=== PATIENT | male | born 1975 | race Caucasian/White ===

== ENCOUNTER 2020-04-16 10:54 | Inpatient (IN) | payer OTHER ==
--- NOTE | 2020-04-16 11:10 | BHS.RME ---
Substance Use & Tx History - Substance Use History Alcohol Substance amount: 12 beers 12 oz Frequency of use: Daily Substance route: Oral Date of Last Use: 04/16/20 Physical/Psych/Mental Status - Behavior General Behavior: Increased activity (restlessness, agitation) Eye Contact: Normal - Cooperativeness Cooperativeness: Cooperative - Thinking Thought Processes: Tight, Logical, Goal Directed Thought content: Future oriented - Physical Health Problems Is patient presently having any pain?: No Does patient presently have any injuries (include location): No Does patient currently have a fever: No Is patient : No CIWA Nausea/Vomitin Muscle Tremors: 5 Anxiety: 4-Mod. Anxious/Guarded Agitation: 4-Moderately Restless Paroxysmal Sweats: No Perspiration Orientation: 0-Oriented Tacttile Disturbances: 0-None Auditory Disturbances: 0-None Visual Disturbances: 0-None Headache: 2-Mild CIWA-Ar Total Score: 20
[2020-04-16 11:35] VITALS: BMI 26.7
--- NOTE | 2020-04-16 11:55 | HP ---
CIWA Score Nausea/Vomitin Muscle Tremors: 5 Anxiety: 4-Mod. Anxious/Guarded Agitation: 4-Moderately Restless Paroxysmal Sweats: No Perspiration Orientation: 0-Oriented Tacttile Disturbances: 0-None Auditory Disturbances: 0-None Visual Disturbances: 0-None Headache: 2-Mild CIWA-Ar Total Score: 20 - Admission Criteria OASAS Guidelines: Admission for Medically Managed Detox: Requires at least one of the followin. CIWA greater than 12 2. Seizures within the past 24 hours 3. Delirium tremens within the past 24 hours 4. Hallucinations within the past 24 hours 5. Acute intervention needed for co occurring medical disorder 6. Acute intervention needed for co occurring psychiatric disorder 7. Severe withdrawal that cannot be handled at a lower level of care (continued vomiting, continued diarrhea, abnormal vital signs) requiring intravenous medication and/or fluids 8. Patient presents the following: CIWA greater than 12 Admission Criteria Met: Admission criteria met Admitting History and Physical - Admission Chief Complaint: Patient is a 45 year old male with history of alcohol use disorder, nicotine dependence, presents for detox. History of Present Illness: Patient is a 45 year old male with history of alcohol use disorder, nicotine dependence, presents for detox. PMH: psoriasis PSH: denies Social: lives in [place] with , currently unemployed. former milk delivery driver. Psych: depression Legal: DUI x2 This is patient's first presentation to [facility] for Detox. History Source: Patient Limitations to Obtaining History: No Limitations - Past Medical History Psych: Yes: Depression - Smoking History Smoking history: Former smoker Have you smoked in the past 12 months: No If you are a former smoker, when did you quit?: 2015 - Alcohol/Substance Use Hx Alcohol Use: Yes - Social History Usual Living Arrangement: Yes: With Spouse Do you think of yourself as: Straight/Heterosexual ADL: Independent Occupation: unemployed; former milk delivery driver History of Recent Travel: No Admission ROS [facility] Chief Complaint: Patient is a 45 year old male with history of alcohol use disorder, nicotine dependence, presents for detox. Allergies/Adverse Reactions: Allergies Allergy/AdvReac Type Severity Reaction Status Date / Time No Known Allergies Allergy Verified 04/16/20 11:26 Exam Limitations: No Limitations - Ebola screening Have you traveled outside of the country in the last 21 days: No Have you been sick,other than usual withdrawal symptoms: No Do you have a fever: No - Review of Systems Constitutional: No Symptoms Reported EENT: denies: Blurred Vision, Hearing Loss Respiratory: denies: Cough, Shortness of Breath Cardiac: denies: Chest Pain, Palpitations GI: reports: Diarrhea (patient states secondary to withdrawal), Vomiting, Abdominal cramping, Other (diminished appetite) : denies: Burning, Dysuria Musculoskeletal: denies: Back Pain, Muscle Pain Integumentary: denies: Lesions, Sweating Neuro: reports: Headache, Weakness (diffuse bodu weakness, secondary to withdrawal). denies: Numbness Psychiatric: reports: Anxious, Depressed, other (denies suicidal, homicidal ideation) Patient History - Patient Medical History Hx Asthma: No Hx Chronic Obstructive Pulmonary Disease (COPD): No Hx Cardiac Disorders: No Hx Hypertension: No Hx Seizures: Yes (etoh related seizures last in 2018) Hx Diabetes: No Hx Gastrointestinal Disorders: No Hx Genitourinary Disorders: No Hx Sexually Transmitted Disorders: No Hx Renal Disease (ESRD): No Hx Depression: Yes Hx Suicide Attempt: No Hx Schizophrenia: No - Patient Surgical History Past Surgical History: No - PPD History Previous Implant?: Yes Documented Results: Negative w/o proof Implanted On Prior R Admission?: No PPD to be Administered?: Yes - Reproductive History Patient is a Female of Child Bearing Age (11 -55 yrs old): No Patient : No - Smoking Cessation Smoking history: Former smoker Have you smoked in the past 12 months: No If you are a former smoker, when did you quit?: 2014 Hx Chewing Tobacco Use: No Initiated information on smoking cessation: No - Substance & Tx. History Hx Alcohol Use: Yes Substance Use Type: Alcohol - Substances abused Alcohol Substance route: Oral Frequency: Daily Amount used: 12 beers Age of first use: 17 Date of last use: 04/16/20 Admission Physical Exam BHS - Vital Signs Vital Signs: Vital Signs - 24 hr 04/16/20 11:26 Temperature 98.3 F Pulse Rate 90 Respiratory 20 Rate Blood Pressure 132/90 - Physical General Appearance: Yes: Within Normal Limits, Nourished, Mild Distress, Anxious HEENTM: Yes: EOMI, Normocephalic, TOM Respiratory: Yes: Normal Breath Sounds, No Respiratory Distress, No Accessory Muscle Use Neck: Yes: Supple Cardiology: Yes: Regular Rhythm, Regular Rate, S1, S2 Abdominal: Yes: Normal Bowel Sounds, Non Tender, Flat, Soft Musculoskeletal: Yes: Within Normal Limits, full range of Motion Extremities: Yes: Within Normal Limits, Normal Range of Motion Neurological: Yes: deliver driver II-XII NML intact, Alert, Motor Strength 5/5, Normal R esponse Integumentary: Yes: Dry, Warm - Diagnostic (1) Alcohol dependence with withdrawal, uncomplicated Current Visit: Yes Status: Acute (2) Depression Current Visit: No Status: Chronic Qualifiers: Depression Type: unspecified Qualified Code(s): F32.9 - Major depressive disorder, single episode, unspecified Cleared for Admission [facility] - Detox or Rehab [facility] Level of Care: Medically Managed Detox Regimen/Protocol: Librium Claeared for Rehab Admission: No Screened but not Admitted - Documentation of Visit Screened but not Admitted: Yes Breathalyzer - Breathalyzer Breathalyzer: 0.171 Urine Drug Screen - Test Device Lot number: [id number] Expiration date: 12/03/21 - Control Is test valid?: Yes - Results Drug screen NEGATIVE: Yes Inpatient Rehab Admission - Rehab Decision to Admit Inpatient rehab admission?: No
[2020-04-16] MEDS ORDERED: MAGNESIUM CITRATE 300 ML BOTTLE PO PRN (12:02)
[2020-04-16] MEDS ORDERED: IBUPROFEN 400 MG TABLET (FP) PO PRN (12:02)
[2020-04-16] MEDS ORDERED: BISMUTH SUBSALICYLATE 524 MG/30 ML UD PO PRN (12:02)
[2020-04-16] MEDS ORDERED: MENTHOL/PHENOL 1 EACH UD MM PRN (12:02)
[2020-04-16] MEDS ORDERED: MAGNESIUM HYDROX 2400MG/30ML ORAL SUSPENSION 30 ML CUP PO PRN (12:02)
[2020-04-16] MEDS ORDERED: chlordiazePOXIDE HCL 25 MG CAPSULE PO PRN (12:02)
[2020-04-16] MEDS ORDERED: MAG HYDROX/AL HYDROX/SIMETH 30 ML UNIT-DOSE CUP PO PRN (12:02)
[2020-04-16] MEDS ORDERED: ONDANSETRON *ODT* 4 MG TABLET SL PRN (12:02)
[2020-04-16] MEDS ORDERED: METHOCARBAMOL 500 MG TABLET PO PRN (12:02)
[2020-04-16] MEDS ORDERED: ACETAMINOPHEN 325 MG TABLET (FP) PO PRN ×2 (12:02)
[2020-04-16] MEDS: hydrOXYzine PAMOATE 25 MG CAPSULE (FP) PO SCH ×3 (13:13→22:36)
[2020-04-16 14:32] LABS: HEMOGLOBIN 17.4 GM/dL (11.7-16.9); MCH 33.5 pg (25.7-33.7); MCHC 34.1 g/dl (32.0-35.9); MEAN CELL VOLUME 98.2 fl (80-96); PLATELET COUNT 205 K/MM3 (134-434); RBC 5.19 M/mm3 (4.00-5.60); WHITE BLOOD COUNT 5.8 K/mm3 (4.0-10.0)
[2020-04-16 14:39] LABS: ALBUMIN 4.4 g/dl (3.4-5.0); BILIRUBIN,TOTAL 0.6 mg/dL (0.2-1); BLOOD UREA NITROGEN 3.2 mg/dL (7-18); CALCIUM 9.2 mg/dL (8.5-10.1); CREATININE 0.7 mg/dL (0.55-1.3); POTASSIUM 4.2 mmol/L (3.5-5.1); TOT PROT 8.1 g/dl (6.4-8.2)
[2020-04-16] MEDS: chlordiazePOXIDE HCL 25 MG CAPSULE PO SCH ×2 (17:55→22:36)
[2020-04-16] MEDS: MELATONIN 5 MG TABLETS PO SCH (22:36)
[2020-04-16] MEDS: THIAMINE HCL 100 MG TABLET (FP) PO SCH (22:36)
[2020-04-17] MEDS: chlordiazePOXIDE HCL 25 MG CAPSULE PO SCH ×2 (05:37→11:08)
[2020-04-17] MEDS: hydrOXYzine PAMOATE 25 MG CAPSULE (FP) PO SCH ×5 (05:37→22:53)
--- NOTE | 2020-04-17 08:02 | PN ---
Teaching Attending Note Name of Resident: Jorge Jang ATTENDING PHYSICIAN STATEMENT I saw and evaluated the patient. I reviewed the resident's note and discussed the case with the resident. I agree with the resident's findings and plan as documented. SUBJECTIVE: OBJECTIVE: ASSESSMENT AND PLAN: I agree with resident's plan for admission and treatment protocols.
--- NOTE | 2020-04-17 10:38 | EKG ---
Test Reason : Blood Pressure : / mmHG Vent. Rate : 085 BPM Atrial Rate : 085 BPM P-R Int : 138 ms QRS Dur : 104 ms QT Int : 384 ms P-R-T Axes : 059 070 064 degrees QTc Int : 456 ms NORMAL SINUS RHYTHM NONSPECIFIC INTRAVENTRICULAR CONDUCTION DEFECT NO PREVIOUS ECGS AVAILABLE Confirmed by GIOVANI MUNOZ MD ([id number]) on 04/17/2020 10:38:04 AM Referred By: Confirmed By:GIOVANI MUNOZ MD
[2020-04-17] MEDS: PRENATAL VITAMINS W/ FOLIC ACID TABLET (FP) PO SCH (11:08)
--- NOTE | 2020-04-17 13:15 | CONSULT ---
[facility] Psychiatric Consult - Data Date of interview: 04/17/20 Admission source: [facility] Identifying data: First visit to [facility] and admission to [address] [place] [address] for this 45 y/o [place]born male self-referred for detoxification treatment. EJ issue : alcohol. Patient is marreied (living with ), no dependents, domiciled and currently employed (took time off to address his ETOH problems). Substance Abuse History: Discussed with the patient. EJ issues as follows : Smoking history: Former smoker. Have you smoked in the past 12 months: No. If you are a former smoker, when did you quit?: 2015. Hx Chewing Tobacco Use: No. Initiated information on smoking cessation: No. - Substance & Tx. History. Hx Alcohol Use: Yes. Substance Use Type: Alcohol. - Substances abused. Alcohol. Substance route: Oral. Frequency: Daily. Amount used: 12 beers. Age of first use: 17. Date of last use: 04/16/20 Medical History: Patient endorses good general health. Noted history of ETOH withdrawal-related seizures. Psychiatric History: Patient denies history of psychiatric hospitalizations, OPD care or suicide attempts. Physical/Sexual Abuse/Trauma History: Patient denies. Additional Comment: Negative toxicology. Mental Status Exam - Mental Status Exam Alert and Oriented to: Time, Place, Person Cognitive Function: Good Patient Appearance: Well Groomed (short stature) Mood: Hopeful Affect: Appropriate, Normal Range Patient Behavior: Fatigued, Appropriate, Cooperative Speech Pattern: Clear, Appropriate (bilingual) Voice Loudness: Normal Thought Process: Intact, Goal Oriented Thought Disorder: Not Present Hallucinations: Denies Suicidal Ideation: Denies Homicidal Ideation: Denies Insight/Judgement: Fair Sleep: Fair Appetite: Good Gait/Station: Normal Psychiatric Findings - Problem List ([place] 1, 2,3) (1) Alcohol dependence with withdrawal, uncomplicated Current Visit: Yes Status: Acute - Initial Treatment Plan Initial Treatment Plan: Psychoeducation and support provided in this session. Sleep hygiene. Detoxification in progress. Patient is made aware of benefits of MAT interventions (disulfiram, naltrexone, acamprosate), AA fellowship for maintenance of sobriety. Observation.
--- NOTE | 2020-04-17 14:05 | PN ---
[facility] CIWA - CIWA Score Nausea/Vomitin-Mild Nausea/No Vomiting Muscle Tremors: 2 Anxiety: 2 Agitation: 2 Paroxysmal Sweats: No Perspiration Orientation: 0-Oriented Tacttile Disturbances: 1-Very Mild Itch/Numbness Auditory Disturbances: 0-None Visual Disturbances: 0-None Headache: 2-Mild CIWA-Ar Total Score: 10 S Progress Note (SOAP) Subjective: alert,irritable,anxious,interrupted sleep,tremor,aching pain in the body Objective: 04/17/20 16:32 Vital Signs Temperature 97.3 F L 04/17/20 12:46 Pulse Rate 93 H 04/17/20 13:59 Respiratory Rate 18 04/17/20 13:59 Blood Pressure 110/70 04/17/20 12:46 O2 Sat by Pulse Oximetry (%) 99 04/17/20 13:59 Laboratory Last Values WBC 5.8 K/mm3 (4.0-10.0) 04/16/20 12:15 RBC 5.19 M/mm3 (4.00-5.60) 04/16/20 12:15 Hgb 17.4 GM/dL (11.7-16.9) H 04/16/20 12:15 Hct 51.0 % (35.4-49) H 04/16/20 12:15 MCV 98.2 fl (80-96) H 04/16/20 12:15 MCH 33.5 pg (25.7-33.7) 04/16/20 12:15 MCHC 34.1 g/dl (32.0-35.9) 04/16/20 12:15 RDW 14.0 % (11.9-15.9) 04/16/20 12:15 Plt Count 205 K/MM3 (134-434) 04/16/20 12:15 MPV 9.0 fl (7.5-11.1) 04/16/20 12:15 Sodium 137 mmol/L (136-145) 04/16/20 12:15 Potassium 4.2 mmol/L (3.5-5.1) 04/16/20 12:15 Chloride 100 mmol/L (98-107) 04/16/20 12:15 Carbon Dioxide 25 mmol/L (21-32) 04/16/20 12:15 Anion Gap 11 MMOL/L (8-16) 04/16/20 12:15 BUN 3.2 mg/dL (7-18) L 04/16/20 12:15 Creatinine 0.7 mg/dL (0.55-1.3) 04/16/20 12:15 Est GFR (CKD-EPI)AfAm 133.02 04/16/20 12:15 Est GFR (CKD-EPI)NonAf 114.77 04/16/20 12:15 Random Glucose 94 mg/dL (74-106) 04/16/20 12:15 Calcium 9.2 mg/dL (8.5-10.1) 04/16/20 12:15 Total Bilirubin 0.6 mg/dL (0.2-1) 04/16/20 12:15 AST 337 U/L (15-37) H 04/16/20 12:15 ALT 247 U/L (13-61) H 04/16/20 12:15 Alkaline Phosphatase 179 U/L (45-117) H 04/16/20 12:15 Total Protein 8.1 g/dl (6.4-8.2) 04/16/20 12:15 Albumin 4.4 g/dl (3.4-5.0) 04/16/20 12:15 Syphilis Serology Non-reactive (NONREACTIVE) 04/16/20 12:15 COVID-19 (MARIAMA) Not detected (Not Detected) 04/16/20 12:15 Assessment: 04/17/20 16:33 withdrawal symptom Plan: continue detox ,regimen changed from librium to ativan due to elevation of alt,ast,repeat cmp,inr in am
[2020-04-17] MEDS ORDERED: LORazepam 1 MG TABLET PO PRN (16:36)
[2020-04-17] MEDS: LORazepam 2 MG TABLET PO SCH ×2 (18:21→22:53)
[2020-04-17] MEDS: THIAMINE HCL 100 MG TABLET (FP) PO SCH (22:53)
[2020-04-17] MEDS: MELATONIN 5 MG TABLETS PO SCH (22:54)
[2020-04-18] MEDS ORDERED: chlordiazePOXIDE HCL 25 MG CAPSULE PO SCH (05:00)
[2020-04-18] MEDS: hydrOXYzine PAMOATE 25 MG CAPSULE (FP) PO SCH ×5 (05:39→23:00)
[2020-04-18] MEDS: LORazepam 2 MG TABLET PO SCH ×4 (05:39→23:00)
--- NOTE | 2020-04-18 10:09 | PN ---
S CIWA - CIWA Score Nausea/Vomitin-No Nausea/No Vomiting Muscle Tremors: None Anxiety: 3 Agitation: 0-Normal Activity Paroxysmal Sweats: 3 Orientation: 0-Oriented Tacttile Disturbances: 0-None Auditory Disturbances: 0-None Visual Disturbances: 0-None Headache: 2-Mild CIWA-Ar Total Score: 8 BHS Progress Note (SOAP) Subjective: c/o muscle aches, anxiety, and headache. Objective: 04/18/20 10:08 Vital Signs 04/18/20 04/18/20 06:38 09:15 Temperature 97.5 F L 98.6 F Pulse Rate 83 115 H Respiratory 18 16 Rate Blood Pressure 110/75 131/90 O2 Sat by Pulse 98 95 Oximetry (%) Assessment: 04/18/20 10:09 AOX3, in no acute respiratory distress. Full ROM, ambulating in the unit. Withdrawal symptoms. Plan: continue detox.
[2020-04-18] MEDS: PRENATAL VITAMINS W/ FOLIC ACID TABLET (FP) PO SCH (11:02)
[2020-04-18] MEDS: MELATONIN 5 MG TABLETS PO SCH (23:00)
[2020-04-18] MEDS: THIAMINE HCL 100 MG TABLET (FP) PO SCH (23:00)
[2020-04-19] MEDS ORDERED: chlordiazePOXIDE HCL 10 MG CAPSULE PO PRN
[2020-04-19] MEDS ORDERED: LORazepam 0.5 MG TABLET ONE ×3 (04:35→20:30)
[2020-04-19] MEDS ORDERED: chlordiazePOXIDE HCL 10 MG CAPSULE PO SCH (05:00)
[2020-04-19] MEDS: hydrOXYzine PAMOATE 25 MG CAPSULE (FP) PO SCH ×5 (05:35→22:10)
[2020-04-19] MEDS: LORazepam 1 MG TABLET PO SCH ×4 (05:37→22:10)
[2020-04-19] MEDS: PRENATAL VITAMINS W/ FOLIC ACID TABLET (FP) PO SCH (10:45)
[2020-04-19] MEDS ORDERED: LOPERAMIDE HCL 2 MG CAPSULE PO ONE (10:58)
[2020-04-19] MEDS ORDERED: ONDANSETRON *ODT* 4 MG TABLET SL ONE (10:58)
--- NOTE | 2020-04-19 11:00 | PN ---
S CIWA - CIWA Score Nausea/Vomitin-Mild Nausea/No Vomiting Muscle Tremors: 1-None Visible, but [place] Anxiety: 1-Mildly Anxious Agitation: 0-Normal Activity Paroxysmal Sweats: No Perspiration Orientation: 0-Oriented Tacttile Disturbances: 0-None Auditory Disturbances: 0-None Visual Disturbances: 2-Mild Sensitivity Headache: 1-Very Mild CIWA-Ar Total Score: 6 BHS Progress Note (SOAP) Subjective: 45 years old male was admitted on 04/16/20 for alcohol withdrawal sx management treating with ativan detox regiment loose stool after breakfast imodium 4 mg po x 1 feeling nausea zofran 4 mg sl x 1 Objective: 04/19/20 11:03 Vital Signs - 24 hr 04/18/20 04/18/20 04/18/20 12:45 17:00 20:41 Temperature 97.1 F L 97.5 F L 97.1 F L Pulse Rate 104 H 80 85 Respiratory 20 18 18 Rate Blood Pressure 127/85 136/87 122/82 O2 Sat by Pulse 98 98 Oximetry (%) 04/19/20 04/19/20 05:24 08:49 Temperature 97.1 F L 97.5 F L Pulse Rate 95 H 107 H Respiratory 18 20 Rate Blood Pressure 128/85 134/81 O2 Sat by Pulse 99 Oximetry (%) Laboratory Tests 04/16/20 04/16/20 04/16/20 12:15 12:15 12:15 WBC 5.8 RBC 5.19 Hgb 17.4 H Hct 51.0 H MCV 98.2 H MCH 33.5 MCHC 34.1 RDW 14.0 Plt Count 205 MPV 9.0 Sodium 137 Potassium 4.2 Chloride 100 Carbon Dioxide 25 Anion Gap 11 BUN 3.2 L Creatinine 0.7 Est GFR (CKD-EPI)AfAm 133.02 Est GFR (CKD-EPI)NonAf 114.77 Random Glucose 94 Calcium 9.2 Total Bilirubin 0.6 AST 337 H ALT 247 H Alkaline Phosphatase 179 H Total Protein 8.1 Albumin 4.4 Syphilis Serology Non-reactive COVID-19 (MARIAMA) 04/16/20 12:15 WBC RBC Hgb Hct MCV MCH MCHC RDW Plt Count MPV Sodium Potassium Chloride Carbon Dioxide Anion Gap BUN Creatinine Est GFR (CKD-EPI)AfAm Est GFR (CKD-EPI)NonAf Random Glucose Calcium Total Bilirubin AST ALT Alkaline Phosphatase Total Protein Albumin Syphilis Serology COVID-19 (MARIAMA) Not detected 04/19/20 11:04 ast elevation continue ativan for alcohol withdrawal repeat ast pending Assessment: 04/19/20 11:11 alcohol withdrawal Plan: ativan regiment
[2020-04-19] MEDS: THIAMINE HCL 100 MG TABLET (FP) PO SCH (22:10)
[2020-04-19] MEDS: MELATONIN 5 MG TABLETS PO SCH (22:10)
[2020-04-20] MEDS ORDERED: LORazepam 0.5 MG TABLET PO PRN
[2020-04-20] MEDS ORDERED: chlordiazePOXIDE HCL 10 MG CAPSULE PO SCH (05:00)
[2020-04-20] MEDS: hydrOXYzine PAMOATE 25 MG CAPSULE (FP) PO SCH ×5 (05:39→22:25)
[2020-04-20] MEDS: LORazepam 0.5 MG TABLET PO SCH ×4 (05:39→22:25)
--- NOTE | 2020-04-20 09:19 | PN ---
S CIWA - CIWA Score Nausea/Vomitin-No Nausea/No Vomiting Muscle Tremors: 1-None Visible, but [place] Anxiety: 1-Mildly Anxious Agitation: 0-Normal Activity Paroxysmal Sweats: No Perspiration Orientation: 0-Oriented Tacttile Disturbances: 0-None Auditory Disturbances: 0-None Visual Disturbances: 1-Very Mild Sensitivity Headache: 0-None Present CIWA-Ar Total Score: 3 BHS Progress Note (SOAP) Subjective: 45 years old male was admitted on 04/16/20 for alcohol withdrawal sx management treating with ativan detox regiment feels better today less tremor mild anxiety discussing aftercare with staff mr segovia has appointment with [facility] tomorrow Objective: 04/20/20 09:19 Vital Signs - 24 hr 04/19/20 04/19/20 04/19/20 12:30 16:42 20:20 Temperature 97.3 F L 97.3 F L 97.7 F Pulse Rate 86 69 71 Respiratory 18 18 18 Rate Blood Pressure 126/86 117/79 123/80 O2 Sat by Pulse 100 98 Oximetry (%) 04/20/20 04/20/20 05:31 08:47 Temperature 97.3 F L 97.6 F Pulse Rate 78 90 Respiratory 20 16 Rate Blood Pressure 125/82 126/76 O2 Sat by Pulse 98 Oximetry (%) Laboratory Tests 04/16/20 04/16/20 04/16/20 12:15 12:15 12:15 WBC 5.8 RBC 5.19 Hgb 17.4 H Hct 51.0 H MCV 98.2 H MCH 33.5 MCHC 34.1 RDW 14.0 Plt Count 205 MPV 9.0 Sodium 137 Potassium 4.2 Chloride 100 Carbon Dioxide 25 Anion Gap 11 BUN 3.2 L Creatinine 0.7 Est GFR (CKD-EPI)AfAm 133.02 Est GFR (CKD-EPI)NonAf 114.77 Random Glucose 94 Calcium 9.2 Total Bilirubin 0.6 AST 337 H ALT 247 H Alkaline Phosphatase 179 H Total Protein 8.1 Albumin 4.4 Syphilis Serology Non-reactive COVID-19 (MARIAMA) 04/16/20 12:15 WBC RBC Hgb Hct MCV MCH MCHC RDW Plt Count MPV Sodium Potassium Chloride Carbon Dioxide Anion Gap BUN Creatinine Est GFR (CKD-EPI)AfAm Est GFR (CKD-EPI)NonAf Random Glucose Calcium Total Bilirubin AST ALT Alkaline Phosphatase Total Protein Albumin Syphilis Serology COVID-19 (MARIAMA) Not detected 04/20/20 09:20 repeat ast pending mr segovia will follow up with rebecca taylor for liver enzyme elevation Assessment: 04/20/20 09:20 alcohol withdrawal Plan: ativan regiment
[2020-04-20] MEDS: PRENATAL VITAMINS W/ FOLIC ACID TABLET (FP) PO SCH (10:33)
[2020-04-20] MEDS: MELATONIN 5 MG TABLETS PO SCH (22:25)
[2020-04-20] MEDS: THIAMINE HCL 100 MG TABLET (FP) PO SCH (22:25)
[2020-04-21] MEDS ORDERED: chlordiazePOXIDE HCL 10 MG CAPSULE PO ONE (05:00)
[2020-04-21] MEDS ORDERED: LORazepam 0.5 MG TABLET PO ONE (05:00)
[2020-04-21] MEDS: hydrOXYzine PAMOATE 25 MG CAPSULE (FP) PO SCH (06:39)
--- NOTE | 2020-04-21 08:12 | DS ---
[facility] Detox Discharge Summary Admission Date: 04/16/20 Discharge Date: 04/21/20 - History Present History: Alcohol Dependence Additional Comments: 45 years old male was admitted on 04/16/20 for alcohol withdrawal sx management treated with ativan detox regiment seen by psychiatrist no medical intervention mr segovia has completed the ativan regiment and is tolerated well General Appearance: Yes: Within Normal Limits, Nourished, no Distress, mild Anxious HEENTM: Yes: EOMI, Normocephalic, TOM Respiratory: Yes: Normal Breath Sounds, No Respiratory Distress, No Accessory Muscle Use Neck: Yes: Supple Cardiology: Yes: Regular Rhythm, Regular Rate, S1, S2 Abdominal: Yes: Normal Bowel Sounds, Non Tender, Flat, Soft Musculoskeletal: Yes: Within Normal Limits, full range of Motion Extremities: Yes: Within Normal Limits, Normal Range of Motion Neurological: Yes: outpatient surgery rn II-XII NML intact, Alert, Motor Strength 5/5, Normal Response Integumentary: Yes: Dry, Warm Pertinent Past History: time for discharge 34 minutes - Physical Exam Results Vital Signs: Vital Signs Temperature 98.2 F 04/20/20 20:39 Pulse Rate 76 04/20/20 20:39 Respiratory Rate 18 04/20/20 20:39 Blood Pressure 138/84 04/20/20 20:39 O2 Sat by Pulse Oximetry (%) 97 04/20/20 20:39 Pertinent Admission Physical Exam Findings: alcohol withdrawal Vital Signs - 24 hr 04/20/20 04/20/20 04/20/20 12:45 16:45 20:39 Temperature 98.6 F 98.2 F 98.2 F Pulse Rate 79 78 76 Respiratory 18 18 18 Rate Blood Pressure 131/79 115/78 138/84 O2 Sat by Pulse 98 98 97 Oximetry (%) 04/21/20 04/21/20 06:30 09:07 Temperature 98.0 F 97.5 F L Pulse Rate 83 88 Respiratory 18 18 Rate Blood Pressure 136/94 109/63 O2 Sat by Pulse 98 98 Oximetry (%) Laboratory Tests 04/16/20 04/16/20 04/16/20 12:15 12:15 12:15 WBC 5.8 RBC 5.19 Hgb 17.4 H Hct 51.0 H MCV 98.2 H MCH 33.5 MCHC 34.1 RDW 14.0 Plt Count 205 MPV 9.0 Sodium 137 Potassium 4.2 Chloride 100 Carbon Dioxide 25 Anion Gap 11 BUN 3.2 L Creatinine 0.7 Est GFR (CKD-EPI)AfAm 133.02 Est GFR (CKD-EPI)NonAf 114.77 Random Glucose 94 Calcium 9.2 Total Bilirubin 0.6 AST 337 H ALT 247 H Alkaline Phosphatase 179 H Total Protein 8.1 Albumin 4.4 Syphilis Serology Non-reactive COVID-19 (MARIAMA) 04/16/20 04/20/20 12:15 07:45 WBC RBC Hgb Hct MCV MCH MCHC RDW Plt Count MPV Sodium Potassium Chloride Carbon Dioxide Anion Gap BUN Creatinine Est GFR (CKD-EPI)AfAm Est GFR (CKD-EPI)NonAf Random Glucose Calcium Total Bilirubin AST 128 H ALT Alkaline Phosphatase Total Protein Albumin Syphilis Serology COVID-19 (MARIAMA) Not detected alcohol induced ast elevation current 128 will repeat at [facility] Hospital Course: Detox Protocol Followed, Detoxed Safely, Responded well, Discharged Condition Good, Rehab Referral Accepted Patient has Accepted a Rehab Referral to: [facility] - Medication Discharge Medications: Ambulatory Orders NK [No Known Home Medication] 04/16/20 - Diagnosis (1) Substance induced mood disorder Status: Suspected (2) Alcohol dependence with withdrawal, uncomplicated Status: Acute - AMA Did Patient Leave Against Medical Advice: No CIWA Score - CIWA Score Nausea/Vomitin-No Nausea/No Vomiting Muscle Tremors: 1-None Visible, but [place] Anxiety: 0-No Anxiety, at Ease Agitation: 0-Normal Activity Paroxysmal Sweats: No Perspiration Orientation: 0-Oriented Tacttile Disturbances: 0-None Auditory Disturbances: 0-None Visual Disturbances: 0-None Headache: 0-None Present CIWA-Ar Total Score: 1
[2020-04-21 09:30] VITALS: BP 109/63; PULSE 88; TEMP 97.5
== END 2020-04-21 09:01 | disposition home or self-care (01) | DRG 775 ==
LOC: YASAS 10:54 → Y3N 11:21
PROVIDERS: ADMIT Allergy & Immunology; ATTEND Allergy & Immunology
PROC: HZ2ZZZZ Detoxification Services for Substance Abuse Treatment (ICD-10-PCS; principal; 2020-04-16)
DX: F10.230 Alcohol dependence with withdrawal, uncomplicated (principal); F17.211 Nicotine dependence, cigarettes, in remission; F19.24 Other psychoactive substance dependence with psychoactive substance-induced mood disorder; F32.9 Major depressive disorder, single episode, unspecified; R74.0 Nonspecific elevation of levels of transaminase and lactic acid dehydrogenase [LDH]; Z86.69 Personal history of other diseases of the nervous system and sense organs
CPT/HCPCS: 36415; 80053; 84450; 85027; 86780; 93005; 93010; Q0162; U0003